=== PATIENT | male | born 1990 | race Asian ===

== ENCOUNTER 2018-02-19 20:24 | Emergency (ER) | payer OTHER ==
[2018-02-19 21:00] VITALS: BP 139/86
--- NOTE | 2018-02-19 21:43 | UC ---
Throat Pain/Nasal Christian HPI - HPI Summary HPI Summary: 27 yo male presents with complaints of a dry cough and headache for the past week. He tells me that his symptoms initially began as a headache that is in the back of his head and feels "deep inside" his head. Since that time he has developed a dry cough and intermittent body aches. He has taken tylenol and ibuprofen for his headache with no relief. His headache has been intermittent since 1 week ago and can get up to an 8 in pain. He denies vision changes, fever , chills, weakness, night sweats, sore throat, sinus symptoms, SOB, chest pain, abdominal pain, n/v, or dysuria. - History of Current Complaint Chief Complaint: UCGeneralIllness Stated Complaint: SORE THROAT,HEADACHE Time Seen by Provider: 02/19/18 21:43 Hx Obtained From: Patient Onset/Duration: Gradual Onset Pain Intensity: 0 - Allergies/Home Medications Allergies/Adverse Reactions: Allergies Allergy/AdvReac Type Severity Reaction Status Date / Time No Known Allergies Allergy Verified 02/19/18 21:01 Home Medications: Home Medications Albuterol HFA INHALER* [Ventolin HFA Inhaler*] 2 puff INH Q4H PRN 02/19/18 [ History Confirmed 02/19/18] ISOtretinoin [Isotretinoin] 20 mg PO BID 02/19/18 [History Confirmed 02/19/18] Ibuprofen TAB* [Motrin TAB* 400 MG] 400 mg PO Q6H PRN 02/19/18 [History Confirmed 02/19/18] PMH/Surg Hx/FS Hx/Imm Hx - Additional Past Medical History Additional PMH: Acne Previously Healthy: Yes - Surgical History Surgical History: None - Family History Known Family History: Positive: None - Social History Occupation: Student Lives: With Family Alcohol Use: None Substance Use Type: None Smoking Status (MU): Never Smoked Tobacco Review of Systems Constitutional: Negative Skin: Negative Eyes: Negative ENT: Negative Respiratory: Cough Cardiovascular: Negative Gastrointestinal: Negative Genitourinary: Negative Neurovascular: Negative Musculoskeletal: Negative Neurological: Headache Psychological: Negative All Other Systems Reviewed And Are Negative: Yes Physical Exam - Summary Physical Exam Summary: GENERAL: NAD. WDWN. No pain distress. SKIN: No rashes, sores, ecchymosis or open wounds. HEENT: Head: AT/NC Eyes: PERRLA. EOM intact. Conjunctiva clear without inflammation or discharge. Ears: Hearing grossly normal. TMs intact, no bulging, erythema, or edema. Nose: Nasal mucosa pink and moist. NTTP maxillary and frontal sinus. Throat: Posterior oropharynx without exudates, erythema, or tonsillar enlargement. Uvula midline. NECK: Supple. Nontender. No lymphadenopathy. CHEST: CTAB. No r/r/w. No accessory muscle use. Breathing comfortably and in no distress. CV: RRR. Without m/r/g. Pulses intact. Brisk cap refill. MSK: FROM in B/L UEs and LEs with symmetric strength. NEURO: A&Ox3. 3 word recall, remote, recent memory, ability to follow 2-step directions, and attention intact. CN II XII grossly intact. [id number] are intact. Gait with normal base. Romberg: maintains balance, no pronator drift. Normal speech. No facial drooping. PSYCH: Age appropriate behavior. Triage Information Reviewed: Yes Vital Signs: Initial Vital Signs Temp 98.8 F 02/19/18 20:54 Pulse 86 02/19/18 20:54 Resp 16 02/19/18 20:54 BP 139/86 02/19/18 20:54 Pulse Ox 100 02/19/18 20:54 Vital Signs Reviewed: Yes Throat Pain/Nasal Course/Dx - Course Course Of Treatment: CXR: There is no radiologist reading after 1999 therefore wet read is as follows: No acute disease. No PNA. Pt was given 30mg IM of toradol for his headache. I suspect his symptoms could be related to post nasal drip, allergies, or viral illness. We discussed transfer to the ED for labwork and potential head CT given persisting headache, but pt declined. Advised to try OTC flonase or nasonex and will rx for zpak. Advised to follow up with [facility] or go to ED if his symptoms persist or worsen. Pt was agreeable to plan. - Differential Dx/Diagnosis Provider Diagnoses: Cough. Headache Discharge - Sign-Out/Discharge Documenting (check all that apply): Patient Departure - Discharge Plan Condition: Stable Disposition: HOME Prescriptions: Azithromycin TAB* [Zithromax TAB (Z-SANTOS) 250 mg #6 tabs] 2 tab PO .TODAY, THEN 1 DAILY #1 santos Patient Education Materials: Acute Bronchitis (ED), Acute Headache (DC) Referrals: No Primary Care Phys,NOPCP [Primary Care Provider] - Additional Instructions: If you develop a fever, shortness of breath, chest pain, new or worsening symptoms - please call your PCP or go to the ED. Your blood pressure was mildly elevated at todays visit. Please see your primary provider within 4 weeks for recheck and re-evaluation. - Billing Disposition and Condition Condition: STABLE Disposition: Home
[2018-02-19] MEDS ORDERED: Ketorolac INJ* 30 MG/ML 1 ML VIAL IM ONE (21:59)
[2018-02-19] MEDS ORDERED: Azithromycin TAB* 250 MG PO ONE (22:27)
--- NOTE | 2018-02-20 07:32 | RAD ---
HISTORY: cough COMPARISONS: None VIEWS: 4: Frontal dual-energy and lateral views of the chest. FINDINGS: CARDIOMEDIASTINAL SILHOUETTE: The cardiomediastinal silhouette is normal. DEBRA: The debra are normal. PLEURA: The costophrenic angles are sharp. No pleural abnormalities are noted. LUNG PARENCHYMA: The lungs are clear. ABDOMEN: The upper abdomen is clear. There is no subphrenic gas. BONES AND SOFT TISSUES: No bone or soft tissue abnormalities are noted. OTHER: None. IMPRESSION: NO ACTIVE CARDIOPULMONARY DISEASE. R2
== END 2018-02-19 22:45 | disposition home or self-care (01) ==
LOC: UCEAST 20:24
DX: R05 Cough (principal); R51 Headache
CPT/HCPCS: 71046; 96372; 99202; A9270-GY; G0463; J1885